=== PATIENT | male | born 1985 | race African-American/Black ===

== ENCOUNTER 2019-03-11 12:31 | Emergency (ER) | payer SELFPAY ==
[~2019-03-11] VITALS: Ht 193 cm; Wt 113.4 kg
[2019-03-11 12:41] VITALS: BP 143/95
--- NOTE | 2019-03-11 13:37 | PHYS DOC ---
Past Medical History Past Medical History: No Pertinent History Past Surgical History: No Surgical History Alcohol Use: None Drug Use: None Adult General Chief Complaint Chief Complaint: HEADACHE HPI HPI Patient is a 33 year old male with no significant medical history who presents to the ED today complaining of a sharp 5 out of 10 intermittent right frontal headache that has been going on for 1 year after smoking K2. Patient states he is here to get a CAT scan of his head to make sure everything is okay. He states his friend just after using K2 and he wants to make sure he gets a brain scan to make sure everything is okay. Patient denies any dizziness, chest pain, shortness of breath. Denies any nausea/ vomiting. I had a long conversation with this patient, informed him he does not meet criteria for needing an emergent CT of the head considering his symptoms have been present for one year. He is alert and oriented 4, has no neurological deficits, also discussed side effects of CT of the head including radiation exposure. Patient asked if we are going to charge him for this visit. Informed him he has been triaged by a nurse, had vitals taken and had a medical screening evaluation at the time and he is not in any acute distress and hence he will be billed. He stood up, removed his blood pressure cuff as well as his O2 monitor threw then in the room and walked away while i was still in the room talking to him. Review of Systems Review of Systems Constitutional: Denies fever or chills [] Eyes: Denies change in visual acuity, redness, or eye pain [] HENT: Denies nasal congestion or sore throat [] Respiratory: Denies cough or shortness of breath [] Cardiovascular: No additional information not addressed in HPI [] GI: Denies abdominal pain, nausea, vomiting, bloody stools or diarrhea [] : Denies dysuria or hematuria [] Musculoskeletal: Denies back pain or joint pain [] Integument: Denies rash or skin lesions [] Neurologic: Reports headache, denies focal weakness or sensory changes [] All other systems were reviewed and found to be within normal limits, except as documented in this note. Allergies Allergies Allergies Coded Allergies Type Severity Reaction Last Updated Verified No Known Drug Allergies 03/11/19 No Physical Exam Physical Exam Constitutional: Well developed, well nourished, no acute distress, non-toxic appearance. [] HENT: Normocephalic, atraumatic, bilateral external ears normal, oropharynx moist, nose normal. [] Eyes: conjunctiva normal, no discharge. [] Neck: Normal range of motion, no stridor. [] Cardiovascular:Unable to obtain patient walked away before physial exam Lungs & Thorax: Unable to obtain patient walked away before physial exam Abdomen: Unable to obtain patient walked away before physial exam Skin: Unable to obtain patient walked away before physial exam Back: Unable to obtain patient walked away before physial exam Extremities: Unable to obtain patient walked away before physial exam Neurologic: Alert and oriented X 4, normal motor function, normal sensory function, no focal deficits noted. Cranial nerves not performed patient walked away Psychologic: Affect normal, judgement normal, mood normal. [] Most of the exam was not performed patient walked away Current Patient Data Vital Signs Vital Signs Date Time Temp Pulse Resp B/P (MAP) Pulse Ox O2 Delivery O2 Flow Rate FiO2 03/11/19 12:41 98.5 85 16 143/95 (111) 97 Room Air 98.5 EKG EKG [] Radiology/Procedures Radiology/Procedures [] Course & Med Decision Making Course & Med Decision Making Pertinent Labs and Imaging studies reviewed. (See chart for details) See history of present illness Dragon Disclaimer Dragon Disclaimer This electronic medical record was generated, in whole or in part, using a voice recognition dictation system. Departure Departure Impression: Primary Impression: Headache Additional Impression: Drug abuse Disposition: 07 AGAINST MEDICAL ADVICE Condition: STABLE Referrals: NO PCP (PCP) Problem Qualifiers Primary Impression: Headache Headache type: unspecified Headache chronicity pattern: unspecified pattern Intractability: intractable Qualified Codes: R51 - Headache SARAH FAN PROSTHETIC LAB TECHNICIAN March 11, 2019 13:37
== END 2019-03-11 14:11 | disposition home or self-care (01) ==
LOC: ER 12:31
DX: F12.10 Cannabis abuse, uncomplicated (principal); R51 Headache
CPT/HCPCS: 99281

== ENCOUNTER 2019-10-04 18:01 | Emergency (ER) | payer SELFPAY ==
[~2019-10-04] VITALS: Ht 193 cm; Wt 113.4 kg
[2019-10-04] MEDS ORDERED: ORPHENADRINE CITRATE 60 MG/2 ML VIAL. IM ONE (19:15)
[2019-10-04] MEDS ORDERED: KETOROLAC 60 MG/2 ML VIAL. IM ONE (19:15)
[2019-10-04 19:16] VITALS: BP 160/100
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
[2019-10-04] MEDS ORDERED: CYCL10TA2 PO (20:16)
[2019-10-04] MEDS ORDERED: NAPR-514 PO (20:16)
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
== END 2019-10-04 20:21 | disposition home or self-care (01) ==
LOC: ER 18:01
DX: S16.1XXA Strain of muscle, fascia and tendon at neck level, initial encounter (principal); S39.012A Strain of muscle, fascia and tendon of lower back, initial encounter; F17.200 Nicotine dependence, unspecified, uncomplicated; V89.2XXA Person injured in unspecified motor-vehicle accident, traffic, initial encounter; Y93.89 Activity, other specified; Y92.89 Other specified places as the place of occurrence of the external cause; Y99.8 Other external cause status
CPT/HCPCS: 72125; 96372; 99284; J1885; J2360; 70450

== ENCOUNTER 2019-10-21 12:04 | Emergency (ER) | payer OTHER ==
[~2019-10-21] VITALS: Ht 193 cm; Wt 113.4 kg
[~2019-10-21 12:04] MED LIST: CYCL10TA2 PO; NAPR-514 PO
[2019-10-21 12:23] VITALS: BP 144/69
[2019-10-21] MEDS ORDERED: METH-38 PO (12:47)
[2019-10-21] MEDS ORDERED: NAPR500T8 PO (12:47)
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
== END 2019-10-21 12:52 | disposition home or self-care (01) ==
LOC: ER 12:04
DX: S16.1XXA Strain of muscle, fascia and tendon at neck level, initial encounter (principal); F07.81 Postconcussional syndrome; V89.2XXA Person injured in unspecified motor-vehicle accident, traffic, initial encounter; Y93.89 Activity, other specified; Y92.89 Other specified places as the place of occurrence of the external cause; Y99.8 Other external cause status
CPT/HCPCS: 99283

== ENCOUNTER 2020-04-18 14:27 | Emergency (ER) | payer SELFPAY ==
[~2020-04-18] VITALS: Ht 193 cm; Wt 113.6 kg
[~2020-04-18 14:27] MED LIST changes: +METH-38 PO; +NAPR500T8 PO
[2020-04-18 14:30] VITALS: BP 146/90
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
[2020-04-18] MEDS ORDERED: HYDR-2761 PO (14:59)
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
== END 2020-04-18 15:12 | disposition home or self-care (01) ==
LOC: ER 14:27
DX: S62.334A Displaced fracture of neck of fourth metacarpal bone, right hand, initial encounter for closed fracture (principal); R60.0 Localized edema; F17.200 Nicotine dependence, unspecified, uncomplicated; Y29.XXXA Contact with blunt object, undetermined intent, initial encounter; Y93.89 Activity, other specified; Y92.89 Other specified places as the place of occurrence of the external cause; Y99.8 Other external cause status
CPT/HCPCS: 29125; 73130; 99283

== ENCOUNTER 2020-09-09 14:56 | Emergency (ER) | payer SELFPAY ==
[~2020-09-09] VITALS: Ht 193 cm; Wt 109.0 kg
[~2020-09-09 14:56] MED LIST changes: +HYDR-2761 PO
--- NOTE | 2020-09-09 15:42 | RAD ---
EXAM: Chest, single view. HISTORY: Cough. COMPARISON: None. FINDINGS: A frontal view of the chest obtained. There is no infiltrate, pleural effusion or pneumothorax. The heart is normal in size. IMPRESSION: No acute pulmonary finding. Electronically signed by: Jacqueline Ferrell MD (09/09/2020 3:39 PM) [id number]
[2020-09-09] MEDS ORDERED: ALBU2.5V8 IH (17:21)
[2020-09-09] MEDS ORDERED: BENZ100C PO (17:21)
--- NOTE | 2020-09-09 17:23 | ED.ADGEN ---
Past Medical History Past Medical History: No Pertinent History Past Surgical History: No Surgical History Smoking Status: Current Every Day Smoker Alcohol Use: Occasionally Drug Use: None General Adult EDM: Chief Complaint: COUGH HPI: HPI: Patient is a 34 year old AA male who presents the emergency room with complaints of a dry cough and intermittent wheezing for the last 2 months. Patient states for the last 2 days he has also had body aches, chills and experienced episodes of diaphoresis. Patient reports that he was tested for COVID-19 at last week after a traumatic fall where he was admitted for multiple lacerations and a LLE injury. He was advised that his Covid test at was negative. However, he states that both his parents tested positive for COVID-19 this week at their primary care doctors office. Patient reports that he was tested at a Covid clinic outside of [facility] today and does not know those results. He denies any abdominal pain, nausea, vomiting, shortness of breath, chest pain, or palpitations. Patient reports he has been taking his medications that were prescribed by as instructed. He currently denies any pain. Review of Systems: Review of Systems: Complete ROS is negative unless otherwise noted in HPI. Allergies: Allergies: Allergies Coded Allergies Type Severity Reaction Last Updated Verified No Known Drug Allergies 03/11/19 No Physical Exam: PE: See Above Constitutional: Well developed, well nourished, no acute distress, non-toxic appearance. [] HENT: Normocephalic, atraumatic, bilateral external ears normal, nose normal. [] Eyes: PERRLA, EOMI, conjunctiva normal, no discharge. [] Neck: Normal range of motion, no stridor. [] Cardiovascular:Heart rate regular rhythm Lungs & Thorax: Respirations even and unlabored, no retractions, no respiratory distress Skin: Warm, dry, no erythema, no rash; stapled healing lacerations noted to right chest and right arm, no surrounding erythema or drainage. [] Extremities: No cyanosis, ROM intact, no edema. [] Neurologic: Alert and oriented X 3, no focal deficits noted. [] Psychologic: Affect normal, judgement normal, mood normal. [] Current Patient Data: Vital Signs: Vital Signs Date Time Temp Pulse Resp B/P (MAP) Pulse Ox O2 Delivery O2 Flow Rate FiO2 11/6/20 15:06 96.9 114 20 156/75 (102) 97 Room Air 96.9 EKG: EKG: [] Heart Score: Risk Factors: Risk Factors: DM, Current or recent (<one month) smoker, HTN, HLP, family history of CAD, obesity. Risk Scores: Score 0 - 3: 2.5% MACE over next 6 weeks - Discharge Home Score 4 - 6: 20.3% MACE over next 6 weeks - Admit for Clinical Observation Score 7 - 10: 72.7% MACE over next 6 weeks - Early Invasive Strategies Radiology/Procedures: Radiology/Procedures: PROCEDURE: CHEST AP ONLY EXAM: Chest, single view. HISTORY: Cough. COMPARISON: None. FINDINGS: A frontal view of the chest obtained. There is no infiltrate, pleural effusion or pneumothorax. The heart is normal in size. IMPRESSION: No acute pulmonary finding. [] Course & Med Decision Making: Course & Med Decision Making Pertinent Labs and Imaging studies reviewed. (See chart for details) 34-year-old male presented to the emergency room with concerns of a continuous dry cough for 2 months and intermittent wheezing. Chest x-ray was unremarkable. Patient has a pending COVID-19 swab from a clinic that was done earlier today. I advised patient that his chest x-ray was no rmal. I will prescribe him an albuterol inhaler for his intermittent wheezing as of Jacinto Zhu to help control the cough. Recommended that the patient follow-up with a primary care doctor for further evaluation of the chronic cough that has been ongoing for months. Encouraged patient to follow the COVID-19 instructions until results of his COVID-19 test are known or he has been asymptomatic for 72 hours. I instructed the patient to continue taking medications prescribed by following fall that happened 1 week ago. I advised him to follow-up with his doctors at about his previous injuries as planned. Patient verbalized an understanding of home care, medications, follow-up, and return to ED instructions and was in agreement with the plan of care. [] Dragon Disclaimer: Flory Disclaimer: This electronic medical record was generated, in whole or in part, using a voice recognition dictation system. Departure Departure Impression: Primary Impression: Persistent dry cough Additional Impression: Person under investigation for COVID-19 Disposition: 01 DC HOME SELF CARE/HOMELESS Condition: STABLE Referrals: NO PCP (PCP) Patient Instructions: Cough, Adult, [id number] Additional Instructions: Fill prescription(s) and use as directed. Avoid airway triggers such as smoke, fragrance, dust, and pollen. Follow-up with a primary care doctor for further evaluation of your chronic cough, return to the ER if symptoms worsen. You have been tested for or diagnosed with COVID-19. It is an infection caused by a new type of coronavirus. COVID-19 will cause cold-like or mild flu symptoms in most. It can cause more severe symptoms like problems breathing in some. There is no treatment for COVID-19. The body will clear the infection over time. Self-care will help to ease discomfort. Steps to Take: Self-Care Rest as needed. Healthy habits may help you feel better. Steps include: Choose healthy foods including fruits and vegetables. Drink water throughout the day. Get plenty of sleep each night. If you smoke, try to quit. It may ease breathing. Avoid alcohol. Keep Others Healthy The virus can spread to others. Droplets are released every time you sneeze or cough. The droplets can get into the mouth, nose, or eyes of people near you and lead to infection. To lower the chances of spreading COVID-19 to others: Stay at home until your doctor has said it is safe to leave. If you tested positive this will mean staying isolated until both of the following are true: At least 7 days have passed since the start of illness. You are free of fever for at least 72 hours without the use of medicine. During this time: - Avoid public areas, events, or transportation. Do not return to work or school until your doctor has said it is safe to do so. - Call ahead if you need to go to a medical center. Let them know you may have COVID-19. It will help them guide you where to go. They may also ask you to wear a facemask w hen you come to the office. - If you call for emergency medical services, let them know you may have COVID- 19. While at home: - Try to avoid close contact with others. Stay about 6 feet away. - If possible, spend most of your time in a separate room from others. - Use a face mask if you will be in close contact with others such as sharing a room or vehicle. - Have someone wipe down common surfaces in the home. Use household cruise coordinator every day on areas like doorknobs, counters, or sinks. - Cough or sneeze into a tissue. Throw the tissue away right after use. If a tissue is not available, cough or sneeze into your elbow. - Wash your hands often. Wash them after sneezing or coughing. Use soap and water and wash for at least 20 seconds. Alcohol based hand spot cleaner can be used if soap and water is not available. - Do not prepare food for others. Avoid sharing personal items like forks, spoons, or toothbrushes. - Avoid close contact with pets while you are sick. There is no evidence of the virus passing to pets. This is a safety step until more is known about this virus. Isolation can be frustrating. Social interaction can help. Keep in touch with friends and family through phone and tech options. You can still interact with others in your home, just keep a safe distance of about 6 feet. Follow-up: Your doctors office will check in with you to see if there are any changes in your health. You may be asked to keep track of symptoms to share with them. They will also let you know when you are clear to be in public again. Problems to Look Out For: Contact your doctor if your recovery is not going as you expect. Get emergency care if you have problems such as: - Trouble breathing - Nonstop chest pain or pressure - Changes in awareness, confusion, or problems waking - Lips or face have bluish color - Worsening of symptoms If you think you have an emergency, call for emergency medical services right away. As taken from [facility] [address] [place] [address] [facility] [address] [place] [address] [facility] [address] [facility] [place] [address] [facility] [address] [place] [address] [facility] [address] [place] [address] [address] [place] [address] [address] [place] [address] [facility] [address] [place] [address] [facility] [address] [place] [address] [facility] [address] [place] [address] Scripts Benzonatate (TESSALON PERLE) 100 Mg Capsule 1 CAP PO TID PRN for COUGH for 7 Days, #21 CAP 0 Refills Prov: MILO LUO TERRA COTTA SETTER 09/09/20 Albuterol Sulfate (Proair Hfa) 8.5 Gm Hfa.aer.ad 2 PUFF IH PRN Q4-6HRS PRN for wheezing for 21 Days, #1 INHALER 0 Refills Prov: MILO LUO TERRA COTTA SETTER 09/09/20 Problem Qualifiers MILO LUO TERRA COTTA SETTER Sep 09, 2020 17:23
[2020-09-09 17:30] VITALS: BP 150/80
== END 2020-09-09 17:30 | disposition home or self-care (01) ==
LOC: ER 14:56
DX: R05 Cough (principal); Z20.828 Contact with and (suspected) exposure to other viral communicable diseases; R06.2 Wheezing; R68.83 Chills (without fever); F17.200 Nicotine dependence, unspecified, uncomplicated
CPT/HCPCS: 71045; 99283

== ENCOUNTER 2020-10-03 15:41 | Emergency (ER) | payer SELFPAY ==
[~2020-10-03] VITALS: Ht 193 cm; Wt 109.1 kg
[~2020-10-03 15:41] MED LIST changes: +ALBU2.5V8 IH; +BENZ100C PO
--- NOTE | 2020-10-03 16:19 | PHYS DOC ---
Past Medical History Past Medical History: No Pertinent History Past Surgical History: No Surgical History Smoking Status: Current Every Day Smoker Alcohol Use: Occasionally Drug Use: None General Adult EDM: Chief Complaint: SEXUALLY TRANSMITTED DISEASE HPI: HPI: Patient is a 34 year old male patient who presents the ED today requesting STD treatment. Patient states he has been exposed. He is in the ED with a girlfriend requesting treatment. Review of Systems: Review of Systems: Constitutional: Denies fever or chills. [] GI: Denies abdominal pain, nausea, vomiting, bloody stools or diarrhea. [] : Denies dysuria. [] Musculoskeletal: Denies back pain or joint pain. [] Integument: Denies rash. [] Neurologic: Denies headache, focal weakness or sensory changes. [] Psychiatric: Denies depression or anxiety. [] Heart Score: Risk Factors: Risk Factors: DM, Current or recent (<one month) smoker, HTN, HLP, family history of CAD, obesity. Risk Scores: Score 0 - 3: 2.5% MACE over next 6 weeks - Discharge Home Score 4 - 6: 20.3% MACE over next 6 weeks - Admit for Clinical Observation Score 7 - 10: 72.7% MACE over next 6 weeks - Early Invasive Strategies Current Medications: Current Medications Medications (Trade) Dose Ordered Sig/Chirag Start Time Stop Time Status Last Admin Dose Admin Azithromycin (Zithromax) 1,000 mg 1X ONCE 10/03/20 16:15 10/03/20 16:16 UNV Ceftriaxone Sodium (Rocephin Im) 250 mg 1X ONCE 10/03/20 16:15 10/03/20 16:16 UNV Metronidazole (Flagyl) 2,000 mg 1X ONCE 10/03/20 16:15 10/03/20 16:16 UNV Allergies: Allergies: Allergies Coded Allergies Type Severity Reaction Last Updated Verified No Known Drug Allergies 03/11/19 No Physical Exam: PE: Constitutional: Well developed, well nourished, no acute distress, non-toxic appearance. [] Abdomen: Bowel sounds normal, soft, no tenderness, no masses, no pulsatile masses. [] Skin: Warm, dry, no erythema, no rash. [] Back: No tenderness, no CVA tenderness. [] Extremities: No tenderness, no cyanosis, no clubbing, ROM intact, no edema. [] Neurologic: Alert and oriented X 3, normal motor function, normal sensory function, no focal deficits noted. [] Psychologic: Affect normal, judgement normal, mood normal. [] EKG: EKG: [] Radiology/Procedures: Radiology/Procedures: [] Course & Med Decision Making: Course & Med Decision Making Pertinent Labs and Imaging studies reviewed. (See chart for details) This is a 34-year-old male patient presenting to the ED today requesting STD treatment. Treatment was provided as well as education. Dragon Disclaimer: Dragon Disclaimer: This electronic medical record was generated, in whole or in part, using a voice recognition dictation system. Departure Departure Impression: Primary Impression: Concern about STD in male without diagnosis Disposition: 01 DC HOME SELF CARE/HOMELESS Condition: STABLE Referrals: NO PCP (PCP) Follow-up with the health department as needed Patient Instructions: Sexually Transmitted Disease, [id number] Additional Instructions: You were treated for sexually transmitted diseases. Please let your partners know you were treated for STDs and ask them to seek treatment too. Use protection at all times. Follow-up with the health department for further concerns. Do not have any intercourse for 1 week SARAH FAN APRN Oct 03, 2020 16:19
[2020-10-03 16:20] VITALS: BP 136/77
[2020-10-03] MEDS ORDERED: AZITHROMYCIN 250 MG TABLET. PO ONE (16:30)
[2020-10-03] MEDS ORDERED: cefTRIAXone IM 250 MG VIAL IM ONE (16:30)
[2020-10-03] MEDS ORDERED: metroNIDAZOLE 500 MG TABLET PO ONE (16:30)
== END 2020-10-03 16:45 | disposition home or self-care (01) ==
LOC: ER 15:41
DX: Z20.2 Contact with and (suspected) exposure to infections with a predominantly sexual mode of transmission (principal); F17.200 Nicotine dependence, unspecified, uncomplicated
CPT/HCPCS: 96372; 99283; J0696